=== PATIENT | female | born 1965 | race Caucasian/White ===

== ENCOUNTER → 2018-11-09 15:30 | Outpatient (CLI) | payer OTHER, SELFPAY ==
[2018-11-12 14:34] LABS: HPV Reflexed? NOT INDICATED
== END ==
PROVIDERS: Visit Provider Obstetrics & Gynecology
DX: Z12.4 Encounter for screening for malignant neoplasm of cervix (principal); Z78.0 Asymptomatic menopausal state
CPT/HCPCS: 87624; 88175; G0145

== ENCOUNTER → 2021-08-01 | Outpatient (CLI) | payer OTHER, MEDICARE, SELFPAY ==
[2021-08-08 08:19] LABS: HPV Reflexed? NOT INDICATED
== END | disposition home or self-care (01) ==
LOC: LABSPEC 15:08
PROVIDERS: Visit Provider Obstetrics & Gynecology
DX: Z12.4 Encounter for screening for malignant neoplasm of cervix (principal)
CPT/HCPCS: 88175; G0145

== ENCOUNTER → 2023-02-19 | Outpatient (CLI) | payer MEDICARE, SELFPAY ==
--- NOTE | 2023-02-20 13:31 | PFTCOMP ---
COMPLETE PULMONARY FUNCTION TEST INTERPRETATION Brief HPI: Patient is a 57-year-old female, currently under the care of myself, who presents to [facility] for complete pulmonary function tests secondary to diagnosis of abnormal imaging. Respiratory therapist reports good effort and reproducible results. Interpretation: Forced expiration spirometry shows no large airways obstructive ventilatory defect with an FEV1 of 109% predicted. There is no significant bronchodilator response by strict ATS criteria. Spirograms are of good quality and plateau normally. The respiratory flow volume loop shows a normal pattern. Lung volumes by body plethysmography show a normal total lung capacity at 6.47 L, 103% predicted. All other lung volumes are within normal limits. Diffusion capacity by carbon monoxide is normal at 88% predicted. The airway resistance is normal. No previous pulmonary function tests were available for review. Impression: These pulmonary function tests are within normal limits
== END | disposition home or self-care (01) ==
LOC: PSN 10:20
PROVIDERS: PCP Internal Medicine Infectious Disease; Referring Provider Internal Medicine Critical Care Medicine; Visit Provider Internal Medicine Critical Care Medicine
DX: R91.8 Other nonspecific abnormal finding of lung field (principal)
CPT/HCPCS: 94060; 94726; 94729

== ENCOUNTER → 2023-07-14 | Outpatient (CLI) | payer OTHER, SELFPAY ==
--- NOTE | 2023-07-14 15:46 | CT_ITS ---
EXAM: CT CHEST WITHOUT INTRAVENOUS CONTRAST CLINICAL INDICATION: CRIS GGO TECHNIQUE: Helically acquired images were obtained of the chest without intravenous contrast. CTDIvol = ( 13.16 ) mGy, DLP = ( 506.32 ) mGycm This CT exam was performed using one or more of the following dose reduction techniques: automated exposure control, adjustment of the mA and/or kV according to patient size, and/or use of iterative reconstruction technique. COMPARISON: None available FINDINGS: LUNGS AND PLEURAL SPACES: Groundglass opacity left upper lobe measuring 1.9 x 1.1 cm. The central solid component measures up to 7 mm. A few scattered small calcified granulomas on the right side. No other remarkable pulmonary nodules. No consolidation. No pleural effusion or pneumothorax. HEART: Coronary atherosclerotic calcifications. No other cardiomediastinal or hilar abnormalities. MEDIASTINUM: See below. THYROID: Unremarkable. No thyroid lesions. BONES/JOINTS: Chronic moderate anterior wedge compression fracture involving the T1 vertebral body. Multilevel spine degenerative changes. No suspicious lytic or blastic abnormality. VASCULATURE: See below. LYMPH NODES: Calcified lymph nodes related to granulomatous disease are seen involving the right hilar region. CT/Chest without Contrast IMPRESSION: 1.9 cm x 1.1 cm groundglass opacity at the left upper lobe. Assuming no priors are available for comparison, recommend CT at 6-12 months to confirm persistence then CT at 3 and 5 years per Fleischner guidelines. Electronically Signed: Lewis Huynh MD at 4:36 EDT ,
== END | disposition home or self-care (01) ==
LOC: CT 15:44
PROVIDERS: PCP Internal Medicine Infectious Disease; Referring Provider Internal Medicine Critical Care Medicine; Visit Provider Internal Medicine Critical Care Medicine
DX: R91.8 Other nonspecific abnormal finding of lung field (principal)
CPT/HCPCS: 71250